=== PATIENT | female | born 1985 | race Caucasian/White ===

== ENCOUNTER → 2019-02-04 | Outpatient (CLI) | payer OTHER ==
--- NOTE | 2019-02-04 15:04 | XR ---
EXAMINATION TYPE: XR lumbosacral spine min 4V DATE OF EXAM: 02/04/2019 CLINICAL HISTORY: Back pain TECHNIQUE: Frontal, lateral, and oblique images of the lumbar spine are obtained. COMPARISON: 09/11/2013 FINDINGS: There are 5 lumbar type vertebral bodies identified. The lumbar spine shows satisfactory alignment without evidence of acute fracture or dislocation. Vertebral body heights and disk space he ights are within normal limits. The oblique images appear within normal limits. The overlying soft tissue appears unremarkable.. IMPRESSION: No acute fracture or alignment is seen in the lumbar spine. No significant degenerative disc disease on x-ray.
== END | disposition home or self-care (01) ==
LOC: RADXRMAIN 14:04
PROVIDERS: ATTEND Nurse Practitioner Family
DX: M54.42 Lumbago with sciatica, left side (principal); M54.41 Lumbago with sciatica, right side; G62.9 Polyneuropathy, unspecified
CPT/HCPCS: 72110

== ENCOUNTER → 2019-08-21 | Outpatient (CLI) | payer OTHER ==
[2019-08-21 17:41] LABS: Basophils % (A) 0 %; Eosinophils # (A) 0.1 k/uL (0-0.7); Eosinophils % (A) 2 %; HCT 40.7 % (34.0-46.0); HGB 13.2 gm/dL (11.4-16.0); Lymphocytes # (A) 1.7 k/uL (1.0-4.8); Lymphocytes % (A) 29 %; MCH 30.4 pg (25.0-35.0); MCHC 32.4 g/dL (31.0-37.0); MCV 93.9 fL (80.0-100.0); Mean Platelet Volume 7.8; Monocytes # (A) 0.3 k/uL (0-1.0); Monocytes % (A) 5 %; Neutrophils # (A) 3.6 k/uL (1.3-7.7); Neutrophils % (A) 62 %; Platelet Count 257 k/uL (150-450); RBC 4.33 m/uL (3.80-5.40); RDW 13.3 % (11.5-15.5); WBC 5.8 k/uL (3.8-10.6)
[2019-08-21 18:02] LABS: Appearance,Urine Clear (Clear); Bilirubin,Urine Negative (Negative); Blood,Urine Negative (Negative); Color,Urine Yellow; Glucose,Urine (UA) Negative (Negative); Ketones,Urine Negative (Negative); Leukocyte Esterase,Urine Negative (Negative); Nitrite,Urine Negative (Negative); PH, Urine 6.5 (5.0-8.0); Protein,Urine Negative (Negative); Specific Gravity,Urine 1.031 (1.001-1.035)
[2019-08-21 23:20] LABS: Follicle Stimulating Hormone 6.6 mIU/mL; Luteinizing Hormone 5.4 mIU/mL
== END | disposition home or self-care (01) ==
LOC: LABWHC1 17:15
PROVIDERS: ATTEND Obstetrics & Gynecology
DX: Z01.812 Encounter for preprocedural laboratory examination (principal); N93.8 Other specified abnormal uterine and vaginal bleeding
CPT/HCPCS: 36415; 81003; 83001; 83002; 84146; 84443; 85025

== ENCOUNTER 2019-08-26 10:50 | Day surgery (SDC) | payer OTHER ==
[2019-08-21 16:33] VITALS: BMI 26.5
[~2019-08-26 10:50] MED LIST: DEXAMETHASONE SOD PHOSPHATE 10 MG/ML 1 ML VIAL IV ONE; HYDROmorphone 0.5 MG/0.5 ML SYRINGE IVP PRN; LACTATED RINGERS 1,000 ML IV SCH; LIDOCAINE 1% (10MG/ML) FOR IV START INTRADERMA PRN; ONDANSETRON 4 MG/2 ML VIAL IVP ONE; Pre Op ABX Message 1 EACH MISC MISCELLANE ONE; SCOPOLAMINE 1.5MG/72HR PATCH TRANSDERM ONE
[2019-08-26] MEDS ORDERED: fentaNYL (PF) 50 MCG/ML 2 ML AMP ONE (12:17)
[2019-08-26] MEDS ORDERED: LIDOCAINE 1% INJ 10MG/ML (20 ML MDV) ONE (12:17)
[2019-08-26] MEDS ORDERED: PROPOFOL 10 MG/ML 20 ML VIAL IV ONE (12:17)
[2019-08-26] MEDS ORDERED: MIDAZOLAM 2 MG/2 ML VIAL ONE (12:17)
[2019-08-26] MEDS ORDERED: KETOROLAC 30 MG/ML 1 ML VIAL ONE (12:17)
[2019-08-26] MEDS ORDERED: LACTATED RINGERS 1,000 ML IV ONE ×2 (12:19→12:21)
--- NOTE | 2019-08-26 12:40 | P.OP ---
Date of Procedure: 08/26/19 Preoperative Diagnosis: Menorrhagia Postoperative Diagnosis: Same Procedure(s) Performed: D&C with hysteroscopy Anesthesia: SOPHY Surgeon: Sushant Potter Estimated Blood Loss (ml): 5 Pathology: other (Uterine curettings) Condition: stable Disposition: same day Operative Findings: Pathology pending Description of Procedure: Charlene was taken to the operating suite where a general anesthetic was found be adequate. She was prepped and draped in the normal sterile fashion and placed in dorsal lithotomy position. Initially a weighted speculum was to the vagina and anterior lip of the cervix was identified and grasped with an Allis clamp. Retroverted uterus is noted. Uterus then had the cervix dilated and camera was inserted. No significant pathology was noted therefore camera was removed and sharp curettings of endometrium were obtained all tissues placed on Telfa and sent to pathology for evaluation. Once this was completed, all incidents removed. Sponge, lap, needle counts were all correct 2. Patient was then taken to the recovery room in stable and satisfactory condition. Plan - Discharge Summary Discharge Rx Participant: No New Discharge Prescriptions: New Ibuprofen [Motrin] 600 mg PO Q6HR PRN #30 tab PRN Reason: Pain No Action SUMAtriptan SUCCINATE [Imitrex] 25 mg PO DIRECTED PRN PRN Reason: MIGRAINES Galcanezumab-Gnlm [Emgality Pen] 120 mg SQ Q30D Topiramate [Topamax] 100 mg PO BID HYDROcodone/APAP 5-325MG [[place] 5-325] 1 tab PO Q6H PRN PRN Reason: Pain Cyclobenzaprine [Flexeril] 5 mg PO BID PRN PRN Reason: MUSCLE SPASMS Discharge Medication List Cyclobenzaprine [Flexeril] 5 mg PO BID PRN 08/05/19 [History] Galcanezumab-Gnlm [Emgality Pen] 120 mg SQ Q30D 08/05/19 [History] HYDROcodone/APAP 5-325MG [[place] 5-325] 1 tab PO Q6H PRN 08/05/19 [History] SUMAtriptan SUCCINATE [Imitrex] 25 mg PO DIRECTED PRN 08/05/19 [History] Topiramate [Topamax] 100 mg PO BID 08/05/19 [History] Ibuprofen [Motrin] 600 mg PO Q6HR PRN #30 tab 08/26/19 [Rx] Follow up Appointment(s)/Referral(s): Sushant Potter DO [Doctor of Osteopathic Medicine] - 2 Weeks Activity/Diet/Wound Care/Special Instructions: No heavy lifting, limit stairs and driving, and pelvic rest. If any high temperatures, heavy bleeding, or severe pain call my office Discharge Disposition: HOME SELF-CARE
[2019-08-26 12:48] VITALS: RESP 16; TEMP 97
[2019-08-26 14:50] VITALS: BP 100/63; PULSE 69
== END 2019-08-26 15:12 | disposition home or self-care (01) ==
LOC: OR 10:50
PROVIDERS: ATTEND Obstetrics & Gynecology
DX: N92.0 Excessive and frequent menstruation with regular cycle (principal); N85.4 Malposition of uterus; R89.7 Abnormal histological findings in specimens from other organs, systems and tissues; G43.909 Migraine, unspecified, not intractable, without status migrainosus; Z87.891 Personal history of nicotine dependence; Z79.891 Long term (current) use of opiate analgesic; Z79.899 Other long term (current) drug therapy; Z98.890 Other specified postprocedural states; Z87.898 Personal history of other specified conditions; Z80.1 Family history of malignant neoplasm of trachea, bronchus and lung; Z82.49 Family history of ischemic heart disease and other diseases of the circulatory system
CPT/HCPCS: 58558; 81025; 88305; J2250; J1100; J2405; J2001; J3010; J1885; J2704

== ENCOUNTER 2020-09-13 06:50 | Day surgery (SDC) | payer OTHER ==
[2020-09-08 15:28] VITALS: BMI 31.1
--- NOTE | 2020-09-09 17:29 | P.HPOB ---
History of Present Illness H&P Date: 09/09/20 Chief Complaint: Dysfunctional uterine bleeding Charlene is a 35-year-old female with heavy vaginal bleeding and dysfunctional uterine bleeding. She is scheduled for a D&C with hysteroscopy and NovaSure ablation. She was scheduled for this previously but she had to cancel and we are now proceeding. Her bleeding history is that of heavy vaginal bleeding that continues to occur despite more conservative treatments. She has been taking oral contraceptives that have not been helping. Past Medical History Past Medical History: Musculoskeletal Disorder Additional Past Medical History / Comment(s): CURRENT: HEAVY BLEEDING DURING MENSTRUATION. Hx MIGRAINES. BACK PAIN History of Any Multi-Drug Resistant Organisms: None Reported Past Surgical History: Section Additional Past Surgical History / Comment(s): X3. WISDOM TEETH,d&C/hysteroscopy Past Anesthesia/Blood Transfusion Reactions: Motion Sickness Additional Past Anesthesia/Blood Transfusion Reaction / Comment(s): no hx blood transfusion Smoking Status: Former smoker - Past Family History Mother Family Medical History: Cancer, Deep Vein Thrombosis (DVT) Additional Family Medical History / Comment(s): LUNG CANCER Medications and Allergies Home Medications Medication Instructions Recorded Confirmed Type Cyclobenzaprine [Flexeril] 5 mg PO BID PRN 08/05/19 09/08/20 History Galcanezumab-Gnlm [Emgality Pen] 120 mg SQ Q30D 08/05/19 09/08/20 History HYDROcodone/APAP 5-325MG [[place] 1 tab PO TID PRN 08/05/19 09/08/20 History 5-325] SUMAtriptan succinate [Imitrex] 25 mg PO DIRECTED PRN 08/05/19 09/08/20 History Allergies Allergy/AdvReac Type Severity Reaction Status Date / Time No Known Allergies Allergy Verified 09/08/20 15:17 Exam Osteopathic Statement: *. No significant issues noted on an osteopathic structural exam other than those noted in the History and Physical/Consult. - OBG Physical Exam Breast: both: normal (no masses) Abdomen: bowel sounds normal, no diffuse tenderness, no bruit present, no guarding noted, no hepatomegaly, no splenomegaly, no mass Vulva: both: normal Vagina: normal moisture, no discharge Cervix: no lesion, no discharge Uterus: normal size, normal contour Adnexa: both: normal Anus/Rectum: normal perianal skin, no rectal mass, no hemorrhoids, heme negative
[~2020-09-13 06:50] MED LIST changes: -DEXAMETHASONE SOD PHOSPHATE 10 MG/ML 1 ML VIAL IV ONE; +DEXAMETHASONE SOD PHOSPHATE 4 MG/ML 1 ML VIAL IV ONE; -LIDOCAINE 1% (10MG/ML) FOR IV START INTRADERMA PRN; -SCOPOLAMINE 1.5MG/72HR PATCH TRANSDERM ONE
[2020-09-13] MEDS ORDERED: LIDOCAINE 1% (10MG/ML) FOR IV START INTRADERMA ONE (07:20)
[2020-09-13] MEDS ORDERED: SCOPOLAMINE 1.5MG/72HR PATCH TRANSDERM ONE (07:30)
[2020-09-13] MEDS ORDERED: MIDAZOLAM 2 MG/2 ML VIAL IVP ONE (08:02)
[2020-09-13] MEDS ORDERED: PROPOFOL 10 MG/ML 20 ML VIAL IV ONE (08:09)
[2020-09-13] MEDS ORDERED: LIDOCAINE 1% INJ 10MG/ML (20 ML MDV) ONE (08:09)
[2020-09-13] MEDS ORDERED: fentaNYL (PF) 50 MCG/ML 2 ML AMP ONE (08:09)
--- NOTE | 2020-09-13 08:46 | P.OP ---
Date of Procedure: 09/13/20 Preoperative Diagnosis: Dysfunctional uterine bleeding Postoperative Diagnosis: Same Procedure(s) Performed: D&C with hysteroscopy with NovaSure Anesthesia: SOPHY Surgeon: Sushant Potter Estimated Blood Loss (ml): 3 Pathology: other (Uterine curettings) Condition: stable Disposition: same day Operative Findings: Pathology pending Description of Procedure: Patient was taken the operating suite where general anesthetic was found be adequate. She was prepped and draped in the normal sterile fashion and placed in dorsal lithotomy position. Initially a weighted speculum was inserted in the vagina and the anterior lip of the cervix identified grasped with single-tooth tenaculum. Retroverted uterus is noted and uterus sounded to 8 cm. Cervix was then dilated and camera was inserted. Once this was completed camera was removed and sharp curettings of endometrium were obtained. This tissue was collected, placed on Telfa, and sent to pathology. Once this was accomplished NovaSure system was brought in with a length of 4 and a width of 3.6 it was tested and enabled. Once it passes patency test it was activated and it burned for 2 minutes. At the conclusion the burn, no peripheral sure system was removed and camera was reinserted with excellent burn noted. All instruments were then removed. Sponge, lap, needle counts were all correct 2. Patient was then taken to the recovery room in stable and satisfactory condition. Plan - Discharge Summary Discharge Rx Participant: No New Discharge Prescriptions: No Action SUMAtriptan succinate [Imitrex] 25 mg PO DIRECTED PRN PRN Reason: MIGRAINES Galcanezumab-Gnlm [Emgality Pen] 120 mg SQ Q30D HYDROcodone/APAP 5-325MG [[place] 5-325] 1 tab PO TID PRN PRN Reason: Pain Cyclobenzaprine [Flexeril] 5 mg PO BID PRN PRN Reason: MUSCLE SPASMS Discharge Medication List Cyclobenzaprine [Flexeril] 5 mg PO BID PRN 08/05/19 [History] Galcanezumab-Gnlm [Emgality Pen] 120 mg SQ Q30D 08/05/19 [History] HYDROcodone/APAP 5-325MG [[place] 5-325] 1 tab PO TID PRN 08/05/19 [History] SUMAtriptan succinate [Imitrex] 25 mg PO DIRECTED PRN 08/05/19 [History] Follow up Appointment(s)/Referral(s): Sushant Potter DO [Doctor of Osteopathic Medicine] - 2 Weeks Activity/Diet/Wound Care/Special Instructions: No heavy lifting, limit stairs and driving, and pelvic rest. If any high temperatures, heavy bleeding, or severe pain call my office Discharge Disposition: HOME SELF-CARE
[2020-09-13] MEDS ORDERED: KETOROLAC 15 MG/ML 1 ML VIAL IVP ONE (08:53)
[2020-09-13 08:55] VITALS: TEMP 97.7
[2020-09-13 09:04] VITALS: RESP 16
[2020-09-13] MEDS ORDERED: HYDROcodone/APAP 5-325MG 1 EACH TAB ONE (09:43)
[2020-09-13] MEDS ORDERED: HYDROcodone/APAP 5-325MG 1 EACH TAB PO ONE (09:44)
[2020-09-13 10:14] VITALS: BP 104/70; PULSE 57
== END 2020-09-13 10:33 | disposition home or self-care (01) ==
LOC: OR 06:50
PROVIDERS: ATTEND Obstetrics & Gynecology
DX: N92.0 Excessive and frequent menstruation with regular cycle (principal); N93.8 Other specified abnormal uterine and vaginal bleeding; Z80.1 Family history of malignant neoplasm of trachea, bronchus and lung; Z84.89 Family history of other specified conditions
CPT/HCPCS: 81025; 88305; 58563; J2250; J1100; J2405; J2001; J3010; J1885; J2704